=== PATIENT | male | born 1975 | race Caucasian/White ===

== ENCOUNTER 2017-07-29 14:32 | Emergency (ER) | payer OTHER ==
[2017-07-29 14:33] VITALS: BMI 32.8
[2017-07-29 15:04] VITALS: TEMP 98.6
[2017-07-29] MEDS ORDERED: TDAP Vaccine 0.5 mL Syr IM ONE (15:31)
--- NOTE | 2017-07-29 15:56 | ED PDOC ---
Arrival/HPI - General Chief Complaint: Trauma Time Seen by Provider: 07/29/17 15:02 Historian: Patient - History of Present Illness Narrative History of Present Illness (Text): 07/29/17 15:52 A 42 year old male, whose past medical history includes sciatica, presents to the emergency department complaining of s/p fall injury. Patient reports while working, he fell backwards and hit head and neck onto concrete. Initially after fall, patient began experiencing tingling to bot harms and hands, but currently does no experiencing symptom at this time. Patient states also experiencing mild neck pain, and has laceration and contusion to head, but denies of any LOC , weakness to either arms or legs, nausea vomiting, injuries to hips or legs, or any other complaints at this time. Also, patient mentions he does not takes any bloodthinners or Aspirin, and has no history of diabetes. No PMD Past Medical History - Provider Review Nursing Documentation Reviewed: Yes - Infectious Disease Hx of Infectious Diseases: None - Tetanus Immunization Tetanus Immunization: Unknown - Psychiatric Hx Psychophysiologic Disorder: No Hx Substance Use: No - Anesthesia Hx Anesthesia: No Family/Social History - Physician Review Nursing Documentation Reviewed: Yes Family/Social History: No Known Family HX Smoking Status: Never Smoked Hx Alcohol Use: No Hx Substance Use: No Allergies/Home Meds Allergies/Adverse Reactions: Allergies No Known Allergies Allergy (Verified 01/28/16 16:22) Review of Systems - Review of Systems Gastrointestinal: absent: Nausea, Vomiting Musculoskeletal: Neck Pain (mild neck pain) Neurological: absent: Other (no LOC or weakness to arms and legs) Physical Exam Vital Signs Reviewed: Yes Vital Signs Temp Pulse Resp BP Pulse Ox 07/29/17 16:12 98 H 18 135/96 H 95 07/29/17 14:51 98.6 F 104 H 20 149/91 H 97 Temperature: Afebrile Blood Pressure: Normal Pulse: Regular Respiratory Rate: Normal Appearance: Positive for: Well-Appearing Pain Distress: None Mental Status: Positive for: Alert and Oriented X 3 - Systems Exam Head: Present: Contusion (5 cm contusion to back of head), Laceration (top of head with minimal bleeding) Respiratory/Chest: Present: Other (chest wall non-tender) Back: Present: Paraspinal Tenderness (diffused paraspinal tenderness to lateral C-Spine) Upper Extremity: Present: Other (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 Plan: -- Head CT -- Cervical Spine CT -- Boostrix -- Reassess and disposition Prior Visits: Notes and results from previous visits were reviewed. Patient was last seen in the emergency department on 10/04/2016 for left lower back pain radiating to the left lower extremity. Patient was d/c home. Progress Notes: 07/29/2017 16:[address] IMPRESSION: Posterior high scalp hematoma. No intracranial hemorrhage or mass effect. No calvarial fracture. Incidentally noted are ethmoidal sinus mild inflammatory changes and a likely left anterior maxillary sinus retention cyst. Dictator: Tiffany Mantilla MD 07/29/2017 16:[address] IMPRESSION: No fracture or subluxation. Posterior vertebral body spurring C5 and C6-C6 midline posterior spurring bar encroaching on the cnetral canal likely abutting the thecal sac. Central canal it is lower limits of normal as a result. No foraminal stenosis. C5-6 disc space is narrowing. Dictator: Tiffany Mantilla MD 07/29/17 16:48 Patient's laceration is superficial and has been dressed, not sutured. - RAD Interpretation Radiology Orders: 07/29/17 15:30 HEAD W/O CONTRAST [CT] Stat 07/29/17 15:31 CERVICAL SPINE W/O CONTRAST [CT] Stat - Medication Orders Current Medication Orders: Discontinued Medications Tetanus/Reduced Diphtheria/Acell Pertussis (Boostrix Vaccine Inj) 0.5 ml IM .ONCE ONE Stop: 07/29/17 15:32 Last Admin: 07/29/17 16:09 Dose: 0.5 ml Immunization Registry Document 07/29/17 16:09 MR (Rec: 07/29/17 16:09 [id number]) Immunization Registry Consent Date 07/29/17 - Scribe Statement The provider has reviewed the documentation as recorded by the Rosario Gregg Provider Juan Ramonibe Attestation: All medical record entries made by the Scribe were at my direction and personally dictated by me. I have reviewed the chart and agree that the record accurately reflects my personal performance of the history, physical exam, medical decision making, and the department course for this patient. I have also personally directed, reviewed, and agree with the discharge instructions and disposition. Disposition/Present on Arrival - Present on Arrival Any Indicators Present on Arrival: No History of DVT/PE: No History of Uncontrolled Diabetes: No Urinary Catheter: No History of Decub. Ulcer: No History Surgical Site Infection Following: None - Disposition Have Diagnosis and Disposition been Completed?: Yes Diagnosis: Head injury due to trauma Disposition: HOME/ ROUTINE Disposition Time: 16:28 Patient Plan: Discharge Patient Problems: Current Active Problems Problem Status Onset Head injury due to trauma Acute Osteoarthritis cervical spine Acute Condition: IMPROVED Discharge Instructions (ExitCare): Osteoarthritis (ED), Head Injury (ED), Hypertension (ED), Laceration Without Closure (ED) Additional Instructions: Your blood pressure was elevated today please followup with your primary physician about BP management. Prescriptions: Ibuprofen [Motrin Tab] 800 mg PO TID PRN #20 tab PRN Reason: Pain, Moderate (4-7) Referrals: PCP,NO [Primary Care Provider] - Follow up with primary Forms: [facility] (Maltese), WORK NOTE
[2017-07-29 16:12] VITALS: BP 135/96; PULSE 98; RESP 18; O2SAT 95
--- NOTE | 2017-07-29 16:24 | CT ---
PROCEDURE: CT HEAD WITHOUT CONTRAST. HISTORY: fall COMPARISON: None available. TECHNIQUE: Axial computed tomography images were obtained through the head/brain without intravenous contrast. Radiation dose: Total exam DLP = 727 mGy-cm. This CT exam was performed using one or more of the following dose reduction techniques: Automated exposure control, adjustment of the mA and/or kV according to patient size, and/or use of iterative reconstruction technique. FINDINGS: HEMORRHAGE: No intracranial hemorrhage. BRAIN: No mass effect or edema. No atrophy or chronic microvascular ischemic changes. VENTRICLES: Unremarkable. No hydrocephalus. CALVARIUM: Unremarkable. PARANASAL SINUSES: Left maxillary sinus anterior retention cyst and/or polyp. Retention cyst favored. Bilateral ethmoidal sinus mucosal inflammatory like thickening suggested. No air-fluid levels appreciated MASTOID AIR CELLS: Unremarkable as visualized. No inflammatory changes. OTHER FINDINGS: A high a posterior scalp hematoma 1.2 x 2.7 cm is present (axial series 2 image 54). The subjacent calvarium is intact IMPRESSION: Posterior high scalp hematoma. No intracranial hemorrhage or mass effect. No calvarial fracture Incidentally noted are ethmoidal sinus mild inflammatory changes and a likely left anterior maxillary sinus retention cyst
--- NOTE | 2017-07-29 16:32 | CT ---
PROCEDURE: CT Cervical Spine without contrast HISTORY: Fell and hit back of head. Neck pain COMPARISON: None available. TECHNIQUE: Axial computed tomography images were obtained of the cervical spine without the use of intravenous contrast. Coronal and sagittal reformatted images were created and reviewed. Radiation dose: Total exam DLP = mGy-cm. This CT exam was performed using one or more of the following dose reduction techniques: Automated exposure control, adjustment of the mA and/or kV according to patient size, and/or use of iterative reconstruction technique. FINDINGS: VERTEBRAE: No fracture. Normal alignment. No destructive bony lesion. Posterior vertebral body central spurring encroaching on the ventral central canal C6 and to a lesser extent C5 level. (Axial series 4 image 57). The midline posterior bar like osteophyte, 8 mm wide x 2 mm anterior posterior depth approximates ventral thecal sac. Central canal appears at the lower limits of normal as a result. DISCS/SPINAL CANAL/NEURAL FORAMINA: C6 midline central bar like osteophyte encroaching on the ventral spinal canal - central canal is at the lower limits of normal. This level it is closest to the C5-6 level. No neural foraminal stenosis. With the exception of the C5-6 disc space which is narrowed, disc heights are grossly preserved. PARASPINAL SOFT TISSUES: Unremarkable. OTHER FINDINGS: None. IMPRESSION: No fracture or subluxation. Posterior vertebral body spurring C5 and C6-C6 midline posterior spurring bar encroaching on the central canal likely abutting the thecal sac. Central canal it is lower limits of normal as a result. No foraminal stenosis C5-6 disc space narrowing.
== END 2017-07-29 17:10 | disposition home or self-care (01) ==
LOC: ED 14:32
DX: S09.90XA Unspecified injury of head, initial encounter (principal); W19.XXXA Unspecified fall, initial encounter; Z23 Encounter for immunization

== ENCOUNTER 2018-05-10 20:11 | Emergency (ER) | payer SELFPAY ==
[2018-05-10 20:32] VITALS: BMI 30.7
[2018-05-10 20:34] VITALS: TEMP 98.3
--- NOTE | 2018-05-10 20:51 | ED PDOC ---
Arrival/HPI - General Chief Complaint: Finger,Hand,&Wrist Time Seen by Provider: 05/10/18 20:49 Historian: Patient - History of Present Illness Narrative History of Present Illness (Text): 05/10/18 20:49 42 y/o male, pmh including sciatica, c/o rt. hand 3rd digit nail region pain x 1 weeks. 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 hand 3rd digit, no numbness or tingling, no fever or chills, no night sweat, no other medical or psychological complaints. Past Medical History - Provider Review Nursing Documentation Reviewed: Yes - Infectious Disease Hx of Infectious Diseases: None - Tetanus Immunization Tetanus Immunization: Unknown - Psychiatric Hx Psychophysiologic Disorder: No Hx Substance Use: No - Anesthesia Hx Anesthesia: No Family/Social History - Physician Review Nursing Documentation Reviewed: Yes Family/Social History: Unknown Family HX Smoking Status: Never Smoked Hx Alcohol Use: No Hx Substance Use: No Allergies/Home Meds Allergies/Adverse Reactions: Allergies No Known Allergies Allergy (Verified 05/10/18 20:32) Review of Systems - Review of Systems Constitutional: absent: Fatigue, Fevers Eyes: absent: Vision Changes ENT: absent: Hearing Changes Respiratory: absent: SOB, Cough Cardiovascular: absent: Chest Pain Gastrointestinal: absent: Abdominal Pain, Nausea, Vomiting Skin: Rash, Skin Lesions. absent: Pruritis, Laceration, Abscess, Ulcer, Cellulitis Neurological: absent: Headache, Dizziness Psychiatric: absent: Anxiety, Depression, Suicidal Ideation Physical Exam Vital Signs Reviewed: Yes Vital Signs Temp Pulse Resp BP Pulse Ox 05/10/18 20:33 98.3 F 88 19 135/85 96 05/10/18 20:32 98.3 F 88 19 135/85 96 Temperature: Afebrile Blood Pressure: Normal Pulse: Regular Respiratory Rate: Normal Appearance: Positive for: Well-Appearing, Non-Toxic, Comfortable Pain Distress: Mild Mental Status: Positive for: Alert and Oriented X 3 - Systems Exam Head: Present: Atraumatic, Normocephalic Pupils: Present: PERRL Extroacular Muscles: Present: EOMI Conjunctiva: Present: Normal Mouth: Present: Moist Mucous Membranes Neck: Present: Normal Range of Motion Respiratory/Chest: Present: Clear to Auscultation, Good Air Exchange. No: Respiratory Distress, Accessory Muscle Use Cardiovascular: Present: Regular Rate and Rhythm, Normal S1, S2. No: Murmurs Abdomen: No: Tenderness, Distention, Peritoneal Signs Back: Present: Normal Inspection Upper Extremity: Present: Normal Inspection, Other (Rt. hand 3rd digit: there is mild swelling around the nail edge region but no fluctuance with mild erythematous, no ulcers, FROM without limitation, sensation intact, motor 5/5, neurovascular intact, negative kanavel sign). No: Cyanosis, Edema Lower Extremity: Present: Normal Inspection. No: Edema Neurological: Present: GCS=15, CN II-XII Intact, Speech Normal Skin: Present: Warm, Dry, Normal Color. No: Rashes Psychiatric: Present: Alert, Oriented x 3, Normal Insight, Normal Concentration Medical Decision Making ED Course and Treatment: 05/10/18 20:51 -There is no fluctuant abscess. -Clindamycin ordered. -Discharge home with cleocin, motrin, keep the skin dry and clean, avoid exposure to the chemical product, follow up with your own pmd and hand specialist within 2 days, return to the ER for any new or worsening signs or symptoms. - PA / MAINTENANCE MECHANIC TECHNICIAN / Resident Statement / has reviewed & agrees with the documentation as recorded. Disposition/Present on Arrival - Present on Arrival Any Indicators Present on Arrival: No History of DVT/PE: No History of Uncontrolled Diabetes: No Urinary Catheter: No History of Decub. Ulcer: No History Surgical Site Infection Following: None - Disposition Have Diagnosis and Disposition been Completed?: Yes Diagnosis: Cellulitis, finger Disposition: HOME/ ROUTINE Disposition Time: 20:51 Patient Plan: Discharge Condition: GOOD Discharge Instructions (ExitCare): Cellulitis (ED) Additional Instructions: -Discharge home with cleocin, motrin, keep the skin dry and clean, avoid exposure to the chemical product, follow up with your own pmd and hand specialist within 2 days, return to the ER for any new or worsening signs or symptoms. Prescriptions: Clindamycin [Cleocin] 300 mg PO TID #30 cap Ibuprofen [Motrin Tab] 600 mg PO QID PRN #30 tab PRN Reason: Other Referrals: PCP,NO [Primary Care Provider] - Follow up with primary Corby Rosario MD [Staff Provider] - Follow up with primary [facility] [place] - Follow up with primary Forms: [facility] ([place]aguan), WORK NOTE
[2018-05-10 21:29] VITALS: BP 124/76; PULSE 79; RESP 16; O2SAT 100
== END 2018-05-10 21:28 | disposition home or self-care (01) ==
LOC: ED 20:11
DX: L03.011 Cellulitis of right finger (principal)